=== PATIENT | female | born 1940 | race Asian ===

== ENCOUNTER 2016-05-27 14:04 | Emergency (ER) | payer OTHER ==
[~2016-05-27] VITALS: Ht 157.5 cm; Wt 65.8 kg
[~2016-05-27 14:04] MED LIST: ALBUTEROL0.09 MG/A1 INH; ANTIVERT 25MG #1 PAC PO; AZITHROMYCIN250 M1 PO; AZITHROMYCIN500 M3 PO; CALCIUM 600-D 61 TAB PO; CEFTIN500 M1 PO; DOXYCYCLINE HY100 MG PO; HYDROXYZINE50 MG PO; LINZESS145 MCG PO; LISINOPRIL10 MG PO; MELOXICAM7.5 MG PO; MOBIC7.5 MG PO; PATADAY 2.5 ML2.5 ML OPH; PRAVASTATIN SOD10 MG PO; PROAIR HFA0.09 MG/Ac INH; TESSALON PERLE100 M1 PO; TESSALON PERLE100 MG PO; TOBRADEX OPH SOL5 ML OD; TRAMADOL50 MG PO; TYLENOL WITH C1 EACH PO; VOLTAREN GEL1% TOP; ZITHROMAX Z-PA250 M1 PO; ZOFRAN4 M1 SL
[2016-05-27 14:29] LABS: ABSOLUTE BASOPHIL COUNT 0 /CUMM (0.0-0.2); ABSOLUTE EOSINOPHIL COUNT 0 /CUMM (0.0-0.7); ABSOLUTE GRANULOCYTE CT 9.1 /CUMM (1.4-6.5); ABSOLUTE LYMPH COUNT 0.8 /CUMM (1.2-3.4); ABSOLUTE MONOCYTE COUNT 0.4 /CUMM (0.10-0.60); BASOPHIL % 0.4 % (0.0-2.0); EOSINOPHIL % 0.4 % (0-5); HEMATOCRIT 38.7 % (37-47); MEAN CORPUSCULAR HGB CONC 32.8 G/DL (33.0-37.0); MEAN CORPUSCULAR VOLUME 85.3 FL (81.0-99.0); MEAN PLATELET VOLUME 9.4 FL (7.4-10.4); PLATELET COUNT 215 /CUMM (130-400); RBC DISTRIBUTION WIDTH 13.1 % (11.5-14.5); RED BLOOD CELL CT 4.54 /CUMM (4.20-5.40); WHITE BLOOD CELL COUNT 10.3 /CUMM (4.8-10.8)
[2016-05-27 14:34] LABS: GRANULOCYTE % 88.2 % (42.2-75.2)
--- NOTE | 2016-05-27 16:19 | ED GI/GU/ABDOMINAL COMPLAINT ---
History of Present Illness General Chief Complaint: Nausea, Vomiting, Diarrhea Stated Complaint: NVD Source: patient, family, japanese interpreter (DAUGHTER) Exam Limitations: language barrier Vital Signs & Intake/Output Vital Signs & Intake/Output Vital Signs Date Time Temp Pulse Resp B/P Pulse O2 O2 Flow FiO2 Ox Delivery Rate 05/27 1932 97.4 62 19 158/62 95 Room Air 05/27 1916 Room Air Room Air 05/27 1408 97.6 65 20 179/72 96 Room Air Allergies Coded Allergies: aspirin (NAUSEA, HEADACHE 11/16/15) Triage Note: PT C/O ABDOMINAL PAIN AND DIARRHEA SINCE YESTERDAY. PT ALSO C/O BODY ACHES Triage Nurses Notes Reviewed? yes ? N Is pt currently ? No HPI: 76-year-old female who with multiple medical complaints. All the last few days she has had nausea and vomited several times, last time she vomited was yesterday. She has had diarrhea for the last 2 days as well and had moderate lower abdominal cramping pain earlier this morning. Cramping pain has improved however she still feels mild symptoms. She has no fever or flulike illness, no cough congestion or chest pain. There is been no treatment thus far. Her appetite has been less. There are no modifying factors (FAVIOLA KAISER,JESSIE) Reconcile Medications Amlodipine Besylate 10 MG TABLET 1 TAB PO DAILY HEART (Reported) Diphenhydramine HCl (Benadryl) 25 MG CAPSULE 1 CAP PO TID ALLERGIC REACTION Famotidine (Pepcid) 20 MG TABLET 1 TAB PO BID ALLERGIC REACTION Linaclotide (Linzess) 145 MCG CAPSULE 1 CAP PO DAILY GI (Reported) Methylprednisolone. (Medrol) 4 MG TAB.DS.PK 1 DP PO AD INFLAMMATION 6 on day 1 then reduce by one tablet daily until gone Pravastatin (Pravastatin Sodium) 10 MG TAB 1 TAB PO DAILY CHOLESTEROL ( Reported) (MARIA C ESCALONA,YAN) Past History Travel History Traveled to [place] past 21 day No Medical History Any Pertinent Medical History? 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 No (JESSIE ANSARI) Review of Systems Review of Systems Constitutional: Reports: see HPI. EENTM: Reports: no symptoms. Respiratory: Reports: no symptoms. Cardiovascular: Reports: no symptoms. GI: Reports: see HPI. Genitourinary: Reports: no symptoms. Musculoskeletal: Reports: no symptoms. Skin: Reports: no symptoms. Neurological/Psychological: Reports: no symptoms. Hematologic/Endocrine: Reports: no symptoms. Immunologic/Allergic: Reports: no symptoms. All Other Systems: Reviewed and Negative (JESSIE ANSARI) Physical Exam Physical Exam General Appearance: well developed/nourished Head: atraumatic, normal appearance Eyes: Bilateral: normal appearance, PERRL. Ears, Nose, Throat, Mouth: hearing grossly normal Neck: normal inspection, supple, full range of motion Respiratory: normal breath sounds, chest non-tender, no respiratory distress Cardiovascular: regular rate/rhythm Gastrointestinal: normal bowel sounds, soft, non-tender, no organomegaly Back: normal inspection Extremities: normal range of motion Neurologic/Psych: no motor/sensory deficits, awake, alert, oriented x 3 Skin: intact, normal color, warm/dry Core Measures ACS in differential dx? No Severe Sepsis Present: No Septic Shock Present: No (JESSIE ANSARI) Progress Differential Diagnosis: AAA, AMI, appendicitis, biliary colic, bowel obstruction , colon cancer, cholecystitis, diverticulitis, ectopic , endometritis, esophageal varices, gastritis, hepatitis, hernia, hemorrhoids, ischemic bowel, inflamm bowel dis, intrauterine , kidney stone, Jie-Pia tear, ovarian cyst, ovarian torsion, pancreatitis, PID/cervicitis, peptic ulcer, PUD/ GERD, perforated viscous, SBO, threatened AB, UTI/pyelo Plan of Care: Orders Procedure Date/time Status EKG 05/27 1410 Active URINALYSIS 05/27 1409 Active COMPREHENSIVE METABOLIC PANEL 05/27 1409 Complete CBC WITHOUT DIFFERENTIAL 05/27 1409 Complete Laboratory Tests 05/27/16 1421: Anion Gap 11, Estimated GFR > 60, BUN/Creatinine Ratio 36.7 H, Glucose 148 H, Calcium 10.0, Total Bilirubin 0.6, AST 22, ALT 31, Alkaline Phosphatase 113, Total Protein 8.4 H, Albumin 4.9, Globulin 3.5, Albumin/Globulin Ratio 1.4, CBC w Diff MAN DIFF ORDERED, RBC 4.54, MCV 85.3, MCH 28.0, RDW 13.1, MPV 9.4, Gran % 88.2 H, Lymphocytes % 7.4 L, Monocytes % 3.6, Eosinophils % 0.4, Basophils % 0.4, Absolute Granulocytes 9.1 H, Absolute Lymphocytes 0.8 L, Absolute Monocytes 0.4, Absolute Eosinophils 0, Absolute Basophils 0, Platelet Estimate ADEQUATE, Anisocytosis 1+, PUBS MCHC 32.8 L Diagnostic Imaging: Viewed by Me: CT Scan. Discussed w/RAD: CT Scan. Radiology Impression: PATIENT: CROW CHINO PRESENT AGE: 76 PATIENT ACCOUNT NO: [id number] : 39 LOCATION: [facility] ORDERING PHYSICIAN: JESSIE KAISER SERVICE DATE: 05/27/16 EXAM TYPE : CAT - CT ABD & PELVIS W IV CONTRAST EXAMINATION: CT ABDOMEN AND PELVIS WITH CONTRAST CLINICAL INFORMATION: Abdominal pain COMPARISON: None. TECHNIQUE: Multidetector volumetric imaging was performed of the abdomen and pelvis after the IV administration of 95 mL of Optiray 320 intravenous contrast. Sagittal and coronal reformatted images were obtained on the technologist's workstation. DLP: 358.89 mGy-cm. FINDINGS: LUNG BASES: The visualized lung bases are unremarkable. LIVER, GALLBLADDER, AND BILIARY TREE: The liver is normal in size, shape, and attenuation. No focal hepatic lesion or biliary ductal dilatation is present. Small calcified gallstones layering dependently in the gallbladder. No gallbladder wall thickening. No pericholecystic fluid. Extra hepatic CBD measures 5 mm and tapers to the ampulla PANCREAS: Unremarkable. SPLEEN: Unremarkable. ADRENAL GLANDS: Unremarkable. KIDNEYS AND URETERS: The kidneys are normal in size, shape, and attenuation. No hydronephrosis, hydroureter, or calculi seen. No perinephric stranding. BLADDER: Unremarkable. GASTROINTESTINAL TRACT: No diverticula. No diverticulitis. No acute change of the bowel. No bowel obstruction. No bowel wall thickening or edema. The appendix is not seen. No inflammation the mesentery. The small bowel loops are normal. Small hiatal hernia. ABDOMINAL WALL: Small fat-containing umbilical hernia. LYMPH NODES: Normal. VASCULAR: Unremarkable. PELVIC VISCERA: Uterus is anteverted. Multiple calcified fibroids in uterus. No adnexal abnormality. OSSEOUS STRUCTURES: Degenerative change of the spine with endplate spurs of the vertebrae. Disc height narrowing at thoracic upper lumbar spine. Degenerative arthrosis at facet joints at the lower lumbar spine. No spondylolysis or spondylolisthesis. IMPRESSION: No acute abnormality CT scan pelvis. No acute change of bowel. There is cholelithiasis. No bile duct dilatation. DICTATED BY: JULIO CASTANO MD DATE/ TIME DICTATED:05/27/161816 CENTER DIRECTOR LEAD TEACHER:LEROY DATE/TIME TRANSCRIBED: 05/27/161816 Initial ED EKG: NSR, rate (70), nonspecific ST T wave chg (INF), abnormal Q waves (INF) Rhythm Strip: normal sinus rhythm Comments: Patient treated with IV fluids, we'll CT scan as she has had lower abdominal pain and has to granulocyte shift of 88%. I'm concerned of an intra-abdominal infection. Patient reevaluated and She feels better after receiving IV fluids, we are awaiting the results of CT scan Discussed results of CT scan with patient and daughter, it is unremarkable. She notes that she is feeling headache at this time and daughter states that she has an allergy to IV contrast from a previous CT scan, it was delayed reaction that occurred the next day. It was mild and she did not require any treatment for this, they did not really remember this at time of the CAT scan was being discussed in no remember did after she was not feeling well after the CAT scan. She was given 25 mg of Benadryl IV and monitored. She was reevaluated several times and her symptoms have resolved, no headaches, she is feeling well, no swelling no rash no wheezing or shortness of breath. Not feeling lightheaded or dizzy. She stable for discharge home and is to return with worsening signs of allergic reaction not relieved with Benadryl. (JESSIE ANSARI) Departure Departure Disposition: HOME OR SELF CARE Condition: Stable Clinical Impression Primary Impression: Dehydration Secondary Impressions: Abdominal pain Qualifiers: Abdominal location: generalized Qualified Code: R10.84 - Generalized abdominal pain Referrals: STARLA HOLLINGSWORTH APRN (PCP/Family) Additional Instructions: Return with worsening abdominal pain, nausea, vomiting or fever. [place] diet, advance as tolerated Departure Forms: Customer Survey General Discharge Information (JESSIE ANSARI) PA/CENTRAL STATION OPERATOR Co-Sign Statement Statement: ED Attending supervision documentation- [X] I saw and evaluated the patient. I have also reviewed all the pertinent lab results and diagnostic results. I agree with the findings and the plan of care as documented in the PA's/CENTRAL STATION OPERATOR's documentation. [X] I have reviewed the ED Record and agree with the PA's/CENTRAL STATION OPERATOR's documentation. [] Additions or exceptions (if any) to the PAs/CENTRAL STATION OPERATOR's note and plan are summarized below: [] (MARIA C ESCALONA,YAN)
--- NOTE | 2016-05-27 18:27 | CT SCAN REPORT ---
EXAMINATION: CT ABDOMEN AND PELVIS WITH CONTRAST CLINICAL INFORMATION: Abdominal pain COMPARISON: None. TECHNIQUE: Multidetector volumetric imaging was performed of the abdomen and pelvis after the IV administration of 95 mL of Optiray 320 intravenous contrast. Sagittal and coronal reformatted images were obtained on the technologist's workstation. DLP: 358.89 mGy-cm. FINDINGS: LUNG BASES: The visualized lung bases are unremarkable. LIVER, GALLBLADDER, AND BILIARY TREE: The liver is normal in size, shape, and attenuation. No focal hepatic lesion or biliary ductal dilatation is present. Small calcified gallstones layering dependently in the gallbladder. No gallbladder wall thickening. No pericholecystic fluid. Extra hepatic CBD measures 5 mm and tapers to the ampulla PANCREAS: Unremarkable. SPLEEN: Unremarkable. ADRENAL GLANDS: Unremarkable. KIDNEYS AND URETERS: The kidneys are normal in size, shape, and attenuation. No hydronephrosis, hydroureter, or calculi seen. No perinephric stranding. BLADDER: Unremarkable. GASTROINTESTINAL TRACT: No diverticula. No diverticulitis. No acute change of the bowel. No bowel obstruction. No bowel wall thickening or edema. The appendix is not seen. No inflammation the mesentery. The small bowel loops are normal. Small hiatal hernia. ABDOMINAL WALL: Small fat-containing umbilical hernia. LYMPH NODES: Normal. VASCULAR: Unremarkable. PELVIC VISCERA: Uterus is anteverted. Multiple calcified fibroids in uterus. No adnexal abnormality. OSSEOUS STRUCTURES: Degenerative change of the spine with endplate spurs of the vertebrae. Disc height narrowing at thoracic upper lumbar spine. Degenerative arthrosis at facet joints at the lower lumbar spine. No spondylolysis or spondylolisthesis. IMPRESSION: No acute abnormality CT scan pelvis. No acute change of bowel. There is cholelithiasis. No bile duct dilatation.
[2016-05-27 19:33] VITALS: BP 158/62
== END 2016-05-27 20:16 ==
LOC: ERH 14:04
PROVIDERS: Emergency Medicine
DX: E86.0 Dehydration (principal); R10.30 Lower abdominal pain, unspecified
CPT/HCPCS: 74177; 81003; 93005; 93010; 96374; J1200

== ENCOUNTER 2016-05-29 13:42 | Emergency (ER) | payer OTHER ==
[~2016-05-29] VITALS: Ht 147.3 cm; Wt 81.6 kg
--- NOTE | 2016-05-29 13:49 | ED GI/GU/ABDOMINAL COMPLAINT ---
History of Present Illness General Chief Complaint: Abdominal Pain/Flank Pain Stated Complaint: ITCHY, ABD PAIN Source: family Exam Limitations: language barrier Vital Signs & Intake/Output Vital Signs & Intake/Output Vital Signs Date Time Temp Pulse Resp B/P Pulse O2 O2 Flow FiO2 Ox Delivery Rate 05/29 1520 97.6 66 18 128/68 97 Room Air Room Air 05/29 1345 97.7 65 18 131/69 96 Room Air Room Air Allergies Coded Allergies: aspirin (NAUSEA, HEADACHE 11/16/15) Reconcile Medications Amlodipine Besylate 10 MG TABLET 1 TAB PO DAILY HEART (Reported) Diphenhydramine HCl (Benadryl) 25 MG CAPSULE 1 CAP PO TID ALLERGIC REACTION Famotidine (Pepcid) 20 MG TABLET 1 TAB PO BID ALLERGIC REACTION Linaclotide (Linzess) 145 MCG CAPSULE 1 CAP PO DAILY GI (Reported) Methylprednisolone. (Medrol) 4 MG TAB.DS.PK 1 DP PO AD INFLAMMATION 6 on day 1 then reduce by one tablet daily until gone Pravastatin (Pravastatin Sodium) 10 MG TAB 1 TAB PO DAILY CHOLESTEROL ( Reported) Triage Note: TRIAGE: 76 Y/O FEMALE PRESENTS WITH FAMILY C/O MID ABDOMINAL PAIN AND ITCHINESS TO NECK SINCE LAST NIGHT. WAS SEEN RECENTLY FOR SIMILAR COMPLAINTS. Triage Nurses Notes Reviewed? yes ? N Is pt currently ? No Onset: Gradual Duration: constant Timing: recent history Severity Numbers: 7 Radiation: no radiation HPI: Patient is a 76-year-old female who presents to emergency room stating that she was evaluated at [place] emergency room 2 days ago for concerns of nausea vomiting diarrhea. Patient states that when she went home she had a gradual onset of generalized itching complaints to her body in which she initially on that day took Benadryl however patient has not taken anything since and is that had any improvement of her generalized itching complaints to her body. Denies any fevers chills throat swelling tongue swelling or lip swelling shortness of breath cough chest pain. Patient also states that her initial complaints 2 days ago of nausea vomiting diarrhea and abdominal pain has significantly improved. History is limited due to language barrier however daughter is here to interpret It is noted through patient's last emergency room visit that there was a question of contrast scan allergy in which there was a delayed reaction that has occurred in the past which patient was given IV Benadryl for prophylactic administration prior to the contrast. (LUIS CABRERA) Past History Travel History Traveled to [place] past 21 day No Medical History Any Pertinent Medical History? 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 No (LUIS CABRERA) Review of Systems Review of Systems Constitutional: Reports: no symptoms. EENTM: Reports: no symptoms. Respiratory: Reports: no symptoms. Cardiovascular: Reports: no symptoms. GI: Reports: no symptoms. Genitourinary: Reports: no symptoms. Musculoskeletal: Reports: no symptoms. Skin: Reports: see HPI, rash. Neurological/Psychological: Reports: no symptoms. Hematologic/Endocrine: Reports: no symptoms. Immunologic/Allergic: Reports: no symptoms. All Other Systems: Reviewed and Negative (LUIS CABRERA) Physical Exam Physical Exam General Appearance: well developed/nourished, no apparent distress, alert Gastrointestinal: normal bowel sounds, soft, non-tender, no organomegaly Comments: Well-developed well-nourished person in no acute distress HEENT: Normal EENT exam, extraocular motion intact, no nystagmus. Pupils equally round and reactive to light and accommodation. Nose is atraumatic. External auditory canal and Tympanic membranes clear. Pharynx normal. No swelling or edema. No pharyngeal swelling no tongue swelling no lid swelling Neck: Supple, no lymphadenopathy, normal range of motion without pain or tenderness No stridor Back: Nontender, no CVA tenderness. Cardiovascular: Regular rate and rhythms no murmurs rubs or gallops, normal JVP Respiratory: Chest nontender. No respiratory distress.breath sounds clear to auscultation bilaterally Abdomen: Soft, nontender nondistended, no appreciable organomegaly. Normal bowel sounds. No ascites Extremity: No edema, no calf tenderness to palpation, normal and equal pulses. Neuro: Alert oriented x3, motor sensory normal, Skin: Mild diffuse erythema and urticaria noted to patient's entire body Psych: Mood and affect is normal, memory and judgment is normal. Core Measures ACS in differential dx? No Severe Sepsis Present: No Septic Shock Present: No (LUIS CABRERA) Progress Differential Diagnosis: CONTRAST ALLERGY, ANAPHYLAXIS, ANGIOEDEMA, URTICARIA Plan of Care: Current Medications Sig/Avinash Start time Last Medication Dose Stop Time Status Admin Diphenhydramine HCl 50 MG ONCE ONE 05/29 1414 UNVr (Benadryl) 05/29 1415 Famotidine 20 MG ONCE ONE 05/29 1414 UNVr (Pepcid) 05/29 1415 Methylprednisolone 125 MG ONCE ONE 05/29 1414 UNVr (Solu Medrol) 05/29 1415 Patient currently is in no apparent distress and shows no signs of anaphylaxis or angioedema. No stridor noted oxygen saturation 99% room air. She was given IV anti-inflammatory and antihistamine with improvement of symptoms. I strongly advised patient to not receive contrast iodine media as this is the etiology most likely patient's symptoms. I discussed disposition and plan with daughter who agrees and has no questions. Discussed disposition plan with Dr. Simpson who agrees Patient also has complete resolution of nausea vomiting diarrhea and has no abdominal pain on discharge and is able tolerate by mouth (LUIS CABRERA) Initial ED EKG: none (LUIS CABRERA) Departure Departure Disposition: HOME OR SELF CARE Condition: Stable Clinical Impression Primary Impression: Allergic reaction to contrast dye Referrals: STARLA HOLLINGSWORTH APRN (PCP/Family) Additional Instructions: As discussed please begin the prescription of Medrol Dosepak tomorrow as YOU HAVE received prednisone in the emergency room today. Begin the prescription of Pepcid and Benadryl for itching complaints. If symptoms worsen return to emergency room. Follow-up with primary care doctor on Tuesday. prescription is awaiting a [facility] pharmacy. Please avoid iodine contrast in the future as this is the cause of your symptoms Departure Forms: Customer Survey General Discharge Information Prescriptions: Current Visit Scripts Methylprednisolone. (Medrol) 1 DP PO AD #1 DP 6 on day 1 then reduce by one tablet daily until gone Diphenhydramine HCl (Benadryl) 1 CAP PO TID #12 CAP Famotidine (Pepcid) 1 TAB PO BID #8 TAB (LUIS CABRERA) PA/LEAD PONY RIDER Co-Sign Statement Statement: ED Attending supervision documentation- [] I saw and evaluated the patient. I have also reviewed all the pertinent lab results and diagnostic results. I agree with the findings and the plan of care as documented in the PA's/LEAD PONY RIDER's documentation. [X] I have reviewed the ED Record and agree with the PA's/LEAD PONY RIDER's documentation. [] Additions or exceptions (if any) to the PAs/LEAD PONY RIDER's note and plan are summarized below: [] (JAN ESCALONA,YUE Murillo)
[2016-05-29] MEDS ORDERED: AMLODIPINE BESY10 M1 PO (14:19)
[2016-05-29] MEDS ORDERED: BENADRYL25 MG PO (15:10)
[2016-05-29] MEDS ORDERED: MEDROL4 M2 PO (15:10)
[2016-05-29] MEDS ORDERED: PEPCID20 M1 PO (15:10)
[2016-05-29 15:20] VITALS: BP 128/68
== END 2016-05-29 15:22 ==
LOC: ERH 13:42
DX: T50.8X5A Adverse effect of diagnostic agents, initial encounter (principal); R10.9 Unspecified abdominal pain
CPT/HCPCS: 96374; 96375; J1200; J2930

== ENCOUNTER 2016-07-06 13:44 | Emergency (ER) | payer OTHER ==
[~2016-07-06 13:44] MED LIST changes: +AMLODIPINE BESY10 M1 PO; +BENADRYL25 MG PO; +MEDROL4 M2 PO; +PEPCID20 M1 PO
[2016-07-06 13:52] VITALS: BP 151/85
--- NOTE | 2016-07-06 15:26 | RADIOLOGY REPORT ---
EXAMINATION: XR CHEST CLINICAL INFORMATION: 76-year-old female patient with cough and congestion. COMPARISON: CT of the chest performed on October 2015 and January 2016. Chest x-ray on 11/16/2015. TECHNIQUE: 2 views of the chest were obtained. FINDINGS: The densely calcified lymph node just superior to the right mainstem bronchus is unchanged. The bilateral hilar and mediastinal adenopathy is best evaluated on the CT exams. Nevertheless, no additional adenopathy is appreciated. There is a small calcified granuloma in the apical segment of the right upper lobe. Minor linear scarring is seen in left lower lobe. The remainder of both lungs is clear. There is no pleural effusion. IMPRESSION: No pneumonia or edema. Prior exposure to granulomatous disease. The bilateral hilar and mediastinal adenopathy is best imaged on the prior CT exams..
--- NOTE | 2016-07-06 15:39 | ED INFLUENZA/URI COMPLAINT ---
History of Present Illness General Chief Complaint: Upper Respiratory Sx/Fever Stated Complaint: COUGH,FEVER Source: patient, family (DAUGHTER) Exam Limitations: language barrier Vital Signs & Intake/Output Vital Signs & Intake/Output Vital Signs Date Time Temp Pulse Resp B/P Pulse O2 O2 Flow FiO2 Ox Delivery Rate 07/06 1352 98.5 70 20 151/85 95 Room Air ED Intake and Output 07/07 0000 07/06 1200 Intake Total Output Total Balance Patient 145 lb Weight Allergies Coded Allergies: aspirin (NAUSEA, HEADACHE 07/06/16) Reconcile Medications Albuterol Sulfate (Proair Hfa) 90 MCG HFA.AER.AD 2 PUF INH Q4-6 PRN PRN wheezing Amlodipine Besylate 10 MG TABLET 1 TAB PO DAILY HEART (Reported) Azithromycin (Zithromax) 250 MG TABLET 1 DP PO AD bronchitis 2 the first day followed by 1 for days 2-5 Diphenhydramine HCl (Benadryl) 25 MG CAPSULE 1 CAP PO TID ALLERGIC REACTION Famotidine (Pepcid) 20 MG TABLET 1 TAB PO BID ALLERGIC REACTION Linaclotide (Linzess) 145 MCG CAPSULE 1 CAP PO DAILY GI (Reported) Methylprednisolone. (Medrol) 4 MG TAB.DS.PK 1 DP PO AD INFLAMMATION 6 on day 1 then reduce by one tablet daily until gone Pravastatin (Pravastatin Sodium) 10 MG TAB 1 TAB PO DAILY CHOLESTEROL ( Reported) Triage Note: TRIAGE: PT TO ER WITH DAUGHTER C/C COUGHING X 1 WK, WORSE IN LAST COUPLE DAYS. COUGH HAS BEEN NONPRODUCTIVE. AFEBRILE AT TRIAGE. Triage Nurses Notes Reviewed? yes HPI: 76-year-old female here with her daughter, patient is non-Martiniquais speaking, daughter is translating, she has had cough for 2 days and started having fever today, body aches which are moderate. No treatment thus far. No nausea no vomiting, she does not feel short of breath. Cough is nonproductive. She has no sore throat or nasal congestion. (JESSIE ANSARI) Past History Travel History Traveled to [place] past 21 day No Medical History Any Pertinent Medical History? 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 No (JESSIE ANSARI) Review of Systems Review of Systems Constitutional: Reports: see HPI. EENTM: Reports: no symptoms. Respiratory: Reports: see HPI. Cardiovascular: Reports: no symptoms. GI: Reports: no symptoms. Genitourinary: Reports: no symptoms. Musculoskeletal: Reports: no symptoms. Skin: Reports: no symptoms. Neurological/Psychological: Reports: no symptoms. Hematologic/Endocrine: Reports: no symptoms. Immunologic/Allergic: Reports: no symptoms. All Other Systems: Reviewed and Negative (JESSIE ANSARI) Physical Exam Physical Exam Ears, Nose, Throat: normal ENT inspection Comments: Well-developed well-nourished no apparent distress. HEENT: Atraumatic, extraocular motion intact Pharynx normal, no erythema no swelling Neck: Supple, mild shotty anterior cervical lymphadenopathy Back: Nontender Heart: Regular rate and rhythm no murmur Respiratory: No respiratory distress, lungs clear to auscultation bilateral. No wheezing rales or rhonchi. Abdomen: Soft nontender nondistended Extremities: No edema, full range of motion Neuro: Alert and oriented x3 Psych: Mood affect normal, normal memory normal judgment. Skin: Warm and dry, no rash on exposed skin Core Measures Severe Sepsis Present: No Septic Shock Present: No (EJSSIE ANSARI) Progress Differential Diagnosis: influenza, meningitis, neutropenia, otitis, pneumonia, pharyngitis, sinusitis Plan of Care: Orders Procedure Date/time Status RAPID VIRAL INFLUENZA A 07/06 144 Complete Microbiology 07/06 1550 NASOPHARYN: Influenza Virus A & B Rapid Smear - COMP Diagnostic Imaging: Viewed by Me: Radiology Read. Discussed w/RAD: Radiology Read. CXR Impression: PATIENT: CROW CHINO PRESENT AGE: 76 PATIENT ACCOUNT NO: [id number] : 39 LOCATION: [facility] ORDERING PHYSICIAN: RENAN HERNANDEZ MD SERVICE DATE: 07/06/16-1443 EXAM TYPE: RAD - XRY-CHEST XRAY, PA AND LATERAL EXAMINATION: XR CHEST CLINICAL INFORMATION: 76-year-old female patient with cough and congestion. COMPARISON: CT of the chest performed on October 2015 and January 2016. Chest x-ray on 11/16/2015. TECHNIQUE: 2 views of the chest were obtained. FINDINGS: The densely calcified lymph node just superior to the right mainstem bronchus is unchanged. The bilateral hilar and mediastinal adenopathy is best evaluated on the CT exams. Nevertheless, no additional adenopathy is appreciated. There is a small calcified granuloma in the apical segment of the right upper lobe. Minor linear scarring is seen in left lower lobe. The remainder of both lungs is clear. There is no pleural effusion. IMPRESSION: No pneumonia or edema. Prior exposure to granulomatous disease. The bilateral hilar and mediastinal adenopathy is best imaged on the prior CT exams.. DICTATED BY: SIRISHA POWELL MD DATE/TIME DICTATED:07/06/16 1515 ORDER ENTRY:LEROY DATE/TIME TRANSCRIBED: ED EKG: none Comments: Chest x-ray negative, flu test negative. She likely has mild bronchitis, I am concerned about the fever and the body aches, we'll place her on Zithromax and recommend she returns with worsening symptoms or shortness of breath fever or flulike illness followed up with a primary care doctor if symptoms continue over the next 5-7 days (FAVIOLA KAISER,JESSIE) Departure Departure Disposition: HOME OR SELF CARE Condition: Stable Clinical Impression Primary Impression: Bronchitis Referrals: STARLA HOLLINGSWORTH APRN (PCP/Family) Additional Instructions: Take antibiotics for your infection as directed. Use inhaler as needed for wheezing and coughing, shortness of breath. Use [id number] multisystem cold medication as needed. Motrin and Tylenol as needed for fever. Drink plenty of fluids. Return or follow-up with your doctor if not better in the next 3-5 days or if you're having continued worsening fevers, nausea, vomiting, shortness of breath, abdominal pain, difficulty swallowing or drinking or worsening flulike illness. Departure Forms: Customer Survey General Discharge Information Prescriptions: Current Visit Scripts Azithromycin (Zithromax) 1 DP PO AD #6 TAB 2 the first day followed by 1 for days 2-5 Albuterol Sulfate (Proair Hfa) 2 PUF INH Q4-6 PRN PRN wheezing #1 INHAL (FAVIOLA KAISER,JESSIE) PA/LUMBER STACKER DRIVER Co-Sign Statement Statement: ED Attending supervision documentation- [x] I saw and evaluated the patient. I have also reviewed all the pertinent lab results and diagnostic results. I agree with the findings and the plan of care as documented in the PA's/LUMBER STACKER DRIVER's documentation. [] I have reviewed the ED Record and agree with the PA's/LUMBER STACKER DRIVER's documentation. [] Additions or exceptions (if any) to the PAs/LUMBER STACKER DRIVER's note and plan are summarized below: [] (DAVID ESCALONA,RENAN Le)
[2016-07-06] MEDS ORDERED: PROAIR HFA8.5 GM INH (16:30)
[2016-07-06] MEDS ORDERED: ZITHROMAX250 M2 PO (16:30)
== END 2016-07-06 16:30 ==
LOC: ERH 13:44
DX: J40 Bronchitis, not specified as acute or chronic (principal)
CPT/HCPCS: 87804; 87804-59

== ENCOUNTER 2016-08-04 18:20 | Emergency (ER) | payer OTHER ==
[~2016-08-04] VITALS: Ht 144.8 cm; Wt 65.8 kg
[~2016-08-04 18:20] MED LIST changes: +PROAIR HFA8.5 GM INH; +ZITHROMAX250 M2 PO
[2016-08-04 18:57] LABS: ABSOLUTE BASOPHIL COUNT 0 /CUMM (0.0-0.2); ABSOLUTE EOSINOPHIL COUNT 0.4 /CUMM (0.0-0.7); ABSOLUTE GRANULOCYTE CT 3.6 /CUMM (1.4-6.5); ABSOLUTE LYMPH COUNT 1.8 /CUMM (1.2-3.4); ABSOLUTE MONOCYTE COUNT 0.5 /CUMM (0.10-0.60); BASOPHIL % 0.5 % (0.0-2.0); EOSINOPHIL % 5.7 % (0-5); GRANULOCYTE % 57.1 % (42.2-75.2); HEMATOCRIT 37.9 % (37-47); MEAN CORPUSCULAR HGB 27.8 PG (27.0-31.0); MEAN CORPUSCULAR HGB CONC 32.6 G/DL (33.0-37.0); MEAN CORPUSCULAR VOLUME 85.2 FL (81.0-99.0); MEAN PLATELET VOLUME 8.7 FL (7.4-10.4); PLATELET COUNT 197 /CUMM (130-400); RBC DISTRIBUTION WIDTH 13.9 % (11.5-14.5); RED BLOOD CELL CT 4.45 /CUMM (4.20-5.40); WHITE BLOOD CELL COUNT 6.3 /CUMM (4.8-10.8)
[2016-08-04] MEDS ORDERED: TYLENOL EXTRA500 M2 PO (19:29)
[2016-08-04] MEDS ORDERED: TAMIFLU75 M1 PO (19:29)
--- NOTE | 2016-08-04 19:29 | ED INFLUENZA/URI COMPLAINT ---
History of Present Illness General Chief Complaint: Fever Stated Complaint: FEVER BODY ACHES Source: patient, family Exam Limitations: language barrier Vital Signs & Intake/Output Vital Signs & Intake/Output Vital Signs Date Time Temp Pulse Resp B/P Pulse O2 O2 Flow FiO2 Ox Delivery Rate 08/04 1946 98.5 66 16 149/76 96 Room Air 08/05 1835 98.5 67 16 150/75 95 Room Air Allergies Coded Allergies: aspirin (NAUSEA, HEADACHE 07/06/16) Reconcile Medications Acetaminophen (Tylenol Extra Strength) 500 MG TABLET 1 TAB PO TID FEVER Albuterol Sulfate (Proair Hfa) 90 MCG HFA.AER.AD 2 PUF INH Q4-6 PRN PRN wheezing Amlodipine Besylate 10 MG TABLET 1 TAB PO DAILY HEART (Reported) Azithromycin (Zithromax) 250 MG TABLET 1 DP PO AD bronchitis 2 the first day followed by 1 for days 2-5 Diphenhydramine HCl (Benadryl) 25 MG CAPSULE 1 CAP PO TID ALLERGIC REACTION Famotidine (Pepcid) 20 MG TABLET 1 TAB PO BID ALLERGIC REACTION Linaclotide (Linzess) 145 MCG CAPSULE 1 CAP PO DAILY GI (Reported) Methylprednisolone. (Medrol) 4 MG TAB.DS.PK 1 DP PO AD INFLAMMATION 6 on day 1 then reduce by one tablet daily until gone Oseltamivir Phosphate (Tamiflu) 75 MG CAPSULE 1 CAP PO BID influenza Pravastatin (Pravastatin Sodium) 10 MG TAB 1 TAB PO DAILY CHOLESTEROL ( Reported) Triage Note: PT STATES SHE HAS A FEVER AND HER WHOLE BODY ACHES. PT REPORTS FEELING LIKE THIS FOR THE PAST 3 DAYS. Triage Nurses Notes Reviewed? yes Onset: Abrupt Duration: day(s): (3), constant, continues in ED Timing: recent history Severity: moderate, severe No Modifying Factors: none HPI: 76-year-old female comes into emergency room with complaints of diffuse body aches, headache, fever or chills. Symptoms going for 3 days. Patient does not speak any Scottish. Daughter is translating. She has a history of hypertension but has no other medical problems and takes medications for nothing else. (JEFF ROPER) Past History Travel History Traveled to [place] past 21 day No Medical History Any Pertinent Medical History? 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 No (JEFF ROPER) Review of Systems Review of Systems Constitutional: Reports: see HPI. EENTM: Reports: no symptoms. Respiratory: Reports: no symptoms. Cardiovascular: Reports: no symptoms. GI: Reports: no symptoms. Genitourinary: Reports: no symptoms. Musculoskeletal: Reports: see HPI. Skin: Reports: no symptoms. Neurological/Psychological: Reports: see HPI. Hematologic/Endocrine: Reports: no symptoms. Immunologic/Allergic: Reports: no symptoms. All Other Systems: Reviewed and Negative (JEFF ROPER) Physical Exam Physical Exam General Appearance: well developed/nourished, no apparent distress, alert Head: atraumatic, normal appearance Eyes: Bilateral: normal appearance. Ears, Nose, Throat: moist mucous membrane, hearing grossly normal Neck: normal inspection Respiratory: normal breath sounds, no respiratory distress Cardiovascular: regular rate/rhythm Back: normal range of motion Extremities: normal inspection Neurologic/Psych: awake, alert, oriented x 3, normal gait Skin: intact, normal color Core Measures Severe Sepsis Present: No Septic Shock Present: No (JEFF ROPER) Progress Differential Diagnosis: influenza, meningitis, neutropenia, otitis, pneumonia, pharyngitis, sinusitis Plan of Care: Orders Procedure Date/time Status RAPID VIRAL INFLUENZA A 08/04 1837 Complete COMPREHENSIVE METABOLIC PANEL 08/04 1837 Complete CBC WITHOUT DIFFERENTIAL 08/04 1837 Complete Laboratory Tests 08/04/16 1844: Anion Gap 9, Estimated GFR > 60, BUN/Creatinine Ratio 22.0, Glucose 120 H, Calcium 9.8, Total Bilirubin 0.4, AST 19, ALT 32, Alkaline Phosphatase 103, Total Protein 7.8, Albumin 4.3, Globulin 3.5, Albumin/Globulin Ratio 1.2, CBC w Diff NO MAN DIFF REQ, RBC 4.45, MCV 85.2, MCH 27.8, RDW 13.9, MPV 8.7, Gran % 57.1, Lymphocytes % 28.9, Monocytes % 7.8, Eosinophils % 5.7 H, Basophils % 0.5 , Absolute Granulocytes 3.6, Absolute Lymphocytes 1.8, Absolute Monocytes 0.5, Absolute Eosinophils 0.4, Absolute Basophils 0, PUBS MCHC 32.6 L Microbiology 08/04 1839 NASOPHARYN: Influenza Virus A & B Rapid Smear - COMP INFLUENZA TYPE B Diagnostic Imaging: Viewed by Me: Radiology Read. Discussed w/RAD: Radiology Read. Initial ED EKG: none Comments: 08/04/2016 7:45:10 PM Patient clinically looks well. She is nontoxic appearing. Patient is hemodynamically stable. No acute changes on the chest x-ray. At this time patient can be treated as an outpatient. Supportive treatment. At this time she does not require admission. Return if any other concerns worsening symptoms. Patient and family understand and agree with plan of care. (JEFF ROPER) Departure Departure Disposition: HOME OR SELF CARE Condition: Stable Clinical Impression Primary Impression: Influenza B Referrals: STARLA HOLLINGSWORTH APRN (PCP/Family) Additional Instructions: Pletal home for fever. Included drink fluids. Take Tamiflu as prescribed. Rest. Isolation precautions home. Return if any other concerns worsening symptoms. Departure Forms: Customer Survey General Discharge Information Prescriptions: Current Visit Scripts Oseltamivir Phosphate (Tamiflu) 1 CAP PO BID #10 CAP Acetaminophen (Tylenol Extra Strength) 1 TAB PO TID #20 TAB (JEFF ROPER) PA/DIVING FISHER Co-Sign Statement Statement: ED Attending supervision documentation- [X] I saw and evaluated the patient. I have also reviewed all the pertinent lab results and diagnostic results. I agree with the findings and the plan of care as documented in the PA's/DIVING FISHER's documentation. [X] I have reviewed the ED Record and agree with the PA's/DIVING FISHER's documentation. [] Additions or exceptions (if any) to the PAs/DIVING FISHER's note and plan are summarized below: [] (JAN ESCALONA,YUE Murillo)
[2016-08-04 19:47] VITALS: BP 149/76
--- NOTE | 2016-08-04 20:40 | RADIOLOGY REPORT ---
EXAMINATION: XR CHEST CLINICAL INFORMATION: Shortness of breath. Weakness. Rule out pneumonia. COMPARISON: Chest x-ray of 07/06/2016 and multiple previous chest x-rays dated back to 09/23/2014. CT chest of 01/20/2016. TECHNIQUE: 2 views of the chest were obtained. FINDINGS: The cardiomediastinal silhouette is stable and normal. Calcified mediastinal lymph nodes and calcified right apical lung nodule are stable since multiple previous studies dated back to 2014. Reticular markings at the bilateral lung bases are chronic and stable. No focal consolidation, changes of congestion or pleural effusions. No pneumothorax. The visualized spine is stable in appearance. There is osteopenia of the spine. The visualized upper abdomen is unremarkable. IMPRESSION: No radiographic evidence of pneumonia. No acute pulmonary process. Stable chronic findings.
== END 2016-08-04 19:47 ==
LOC: ERH 18:20
PROVIDERS: Emergency Medicine
DX: J10.1 Influenza due to other identified influenza virus with other respiratory manifestations (principal)
CPT/HCPCS: 87804; 87804-59

== ENCOUNTER 2017-05-18 09:19 | Emergency (ER) | payer OTHER ==
[~2017-05-18] VITALS: Ht 152.4 cm; Wt 72.6 kg
[~2017-05-18 09:19] MED LIST changes: +HYDROCODON-ACE1 EAC2 PO; +LINZESS145 MC1 PO; -LINZESS145 MCG PO; +PRAVASTATIN SOD10 M2 PO; -PRAVASTATIN SOD10 MG PO; +TAMIFLU75 M1 PO; +TRIAMCINOLONE A15 G1 TOP; +TYLENOL EXTRA500 M2 PO; +ZOFRAN ODT4 M1 SL
[2017-05-18 09:22] VITALS: BP 169/72
--- NOTE | 2017-05-18 11:00 | ED HAND/WRIST INJURY COMPLAINT ---
History of Present Illness General Chief Complaint: Hand or Wrist Injury Stated Complaint: LEFT INDEX FINGER INFECTED Source: patient, family, old records Exam Limitations: language barrier Vital Signs & Intake/Output Vital Signs & Intake/Output Vital Signs Date Time Temp Pulse Resp B/P B/P Pulse O2 O2 Flow FiO2 Mean Ox Delivery Rate 05/18 1146 Room Air 05/18 0922 97.7 68 18 169/72 97 Room Air Room Air Allergies Coded Allergies: aspirin (NAUSEA, HEADACHE 07/06/16) Uncoded Allergies: CONTRAST (UNKNOWN 11/19/16) Reconcile Medications Acetaminophen (Tylenol Extra Strength) 500 MG TABLET 1 TAB PO TID FEVER Albuterol Sulfate (Proair Hfa) 90 MCG HFA.AER.AD 2 PUF INH Q4-6 PRN PRN wheezing Amlodipine Besylate 10 MG TABLET 1 TAB PO DAILY HEART (Reported) Clindamycin HCl 300 MG CAPSULE 1 CAP PO TID ABSCESS Famotidine (Pepcid) 20 MG TABLET 1 TAB PO BID ALLERGIC REACTION Linaclotide (Linzess) 145 MCG CAPSULE 1 CAP PO DAILY GI (Reported) Ondansetron (Zofran Odt) 4 MG TAB.RAPDIS 1 TAB SL TID NAUSEA Pravastatin Sodium 10 MG TABLET 1 TAB PO DAILY CHOLESTEROL (Reported) Triage Note: PT ARRIVES TO ED WITH DAUGHTER WITH C/O RIGHT INDEX FINGER INFECTION, "CUT WITH KNIFE 5 DAYS AGO" DENIES FEVER, LAST TETANUS: UNKOWN. Triage Nurses Notes Reviewed? yes Occurred: last week Duration: day(s): (5), constant Timing: remote history Injury Environment: home Severity: mild Severity Numbers: 1 Pain/Injury Location: Right: 2nd finger. Method of Injury: incised No Modifying Factors: none Associated Symptoms: swelling HPI: 77-year-old female history of hypertension presents for evaluation complaining of swelling to her right second finger for the past 5 days. She denies any fevers chills. No difficulty with range of motion. No numbness no tingling. She denies any discharge from the wound (Leander Estrada) Past History Travel History Traveled to [place] past 21 day No Medical History Any Pertinent Medical History? 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 No (Leander Estrada) Review of Systems Review of Systems Constitutional: Reports: see HPI. 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 HEENT: Atraumatic, extraocular motion intact Neck: Supple, FROM Back: FROM Respiratory: No respiratory distress. Patient speaking in full complete sentences. Breath sounds clear to auscultation bilaterally: NO W/R/R Extremities: Right second finger: There is an area of swelling noted to the proximal phalanx palmar aspect with a central scab that is in place, surrounding the scab is an area of what appears to be purulent material under the skin, there is no fluctuance, no erythema tender to palpation, patient has full range of motion of finger, full sensation is noted capillary refills within normal limits, the rest of the hand has full range of motion is atraumatic Neuro: awake, alert, and oriented to person, place and time. There were no obvious focal neurologic abnormalities. Skin: Warm & dry;No appreciable rash on exposed skin Psych: Mood affect normal, normal memory normal judgment. (Leander Estrada) Progress Differential Diagnosis: abscess, cellulitis, felon, paronychia, sprain, tenosynovitis Plan of Care: Microbiology 05/18 1111 EXTREMITIE: Culture & Sensitivity - CAN Cancelled: Cancelled via OE: Per MD Decision 05/18 1111 EXTREMITIE: Gram Stain - CAN Cancelled: Cancelled via OE: Per MD Decision USING STERILE TECHNIQUE, BETADINE PREP AND A 25 GAUGE NEEDLE I ATTEMPTE DTO ASPIRATE THE WHAT APPEARED TO BE FLUID COLLECTION, No discharge was elicited from the abscess. Discussed with patient plan of care she'll follow-up with her primary care physician in 48 hours antibiotics at the [facility]. Return precautions were discussed (Leander Estrada) Departure Departure Time of Disposition: 1127 Disposition: HOME OR SELF CARE Condition: Stable Clinical Impression Primary Impression: Abscess of finger Referrals: Fariha Davis APRN (PCP/Family) Additional Instructions: FOLLOW UP WITH YOUR PMD THIS WEEK. CLINDAMYCIN DIRECTED. WARM SOAKS, RETURN TO THE ER IF YOUR HAVE REDNESS, SWELLING, FEVER CHILLS. THIS WAS SENT TO [facility] Departure Forms: Customer Survey General Discharge Information Prescriptions: Current Visit Scripts Clindamycin HCl 1 CAP PO TID #21 CAP (Leander Estrada) PA/CARD BRUSHER Co-Sign Statement Statement: ED Attending supervision documentation- [] I saw and evaluated the patient. I have also reviewed all the pertinent lab results and diagnostic results. I agree with the findings and the plan of care as documented in the PA's/CARD BRUSHER's documentation. [X] I have reviewed the ED Record and agree with the PA's/CARD BRUSHER's documentation. [] Additions or exceptions (if any) to the PAs/CARD BRUSHER's note and plan are summarized below: [] (Eloy ESCALONA,Sheila)
[2017-05-18] MEDS ORDERED: CLINDAMYCIN HC300 M1 PO (11:29)
[2017-05-23] MEDS ORDERED: BACTRIM DS TAB1 EACH PO (20:56)
[2017-05-23] MEDS ORDERED: TRAMADOL HCL50 M1 PO (20:56)
== END 2017-05-18 11:46 ==
LOC: ERH 09:19
DX: L02.511 Cutaneous abscess of right hand (principal)
CPT/HCPCS: 87070